=== PATIENT | female | born 1985 | race Caucasian/White ===

== ENCOUNTER 2022-08-30 10:36 | Emergency (ER) | payer OTHER ==
[2022-08-30 10:41] VITALS: TEMP 98.2
[2022-08-30] MEDS ORDERED: methylPREDNISolone SOD SUCCI 125 MG/2 ML VIAL IM ONE (11:02)
--- NOTE | 2022-08-30 11:03 | ED ---
General Adult HPI - General Chief complaint: Skin/Abscess/Foreign Body Stated complaint: rash, stiff neck Time Seen by Provider: 08/30/22 10:55 Source: patient, RN notes reviewed Mode of arrival: ambulatory Limitations: no limitations - History of Present Illness Initial comments: Patient is a 37-year-old female presenting to the emergency room with complaints of a rash that has been ongoing for 4 days and with minimal last 24 hours she developed headache and neck pain. She reports frequent chills and excessive sweating though when she checks her temperature at home she has not been febrile. 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 She reports that the rash is bothersome preventing her from wearing a regular bra. She attempted applying Benadryl topical cream without any improvement in symptoms. She denies any chest pain, shortness breath, abdominal pain, nausea, vomiting, diarrhea, weakness, or dizziness. Overall she is healthy and does not take any medications on a regular basis. - Related Data Previous Rx's Medication Instructions Recorded methylPREDNISolone Dose Pack 4 mg PO DIRECTED #21 tab 08/30/22 [Medrol Dose Pack] Allergies Allergy/AdvReac Type Severity Reaction Status Date / Time No Known Allergies Allergy Verified 08/30/22 10:42 Review of Systems ROS Statement: Those systems with pertinent positive or pertinent negative responses have been documented in the HPI. ROS Other: All systems not noted in ROS Statement are negative. Past Medical History Past Medical History: No Reported History Additional Past Medical History / Comment(s): hydronitis History of Any Multi-Drug Resistant Organisms: None Reported Past Surgical History: Section Past Psychological History: Bipolar Smoking Status: Former smoker Past Alcohol Use History: None Reported Past Drug Use History: None Reported General Exam General appearance: alert, in no apparent distress Head exam: Present: atraumatic, normocephalic Eye exam: Present: normal appearance, PERRL. Absent: scleral icterus, conjunctival injection ENT exam: Present: normal exam, mucous membranes moist Neck exam: Present: normal inspection, full ROM. Absent: lymphadenopathy Respiratory exam: Present: normal lung sounds bilaterally. Absent: respiratory distress, wheezes, rales, rhonchi, stridor Cardiovascular Exam: Present: regular rate, normal rhythm, normal heart sounds. Absent: systolic murmur, diastolic murmur, rubs, gallop, clicks GI/Abdominal exam: Present: soft, normal bowel sounds. Absent: distended, tenderness, guarding, rebound, rigid Extremities exam: Present: normal inspection, full ROM. Absent: pedal edema, joint swelling Back exam: Present: full ROM Neurological exam: Present: alert, oriented X3, CN II-XII intact Psychiatric exam: Present: normal affect, normal mood Skin exam: Present: rash (Abdomen and sacral area macular papular no vesicles noted). Absent: vesicles Course Vital Signs 08/30/22 08/30/22 08/30/22 10:38 13:45 16:07 Temperature 98.2 F Pulse Rate 86 67 69 Respiratory 16 16 14 Rate Blood Pressure 122/86 122/68 101/72 O2 Sat by Pulse 99 97 98 Oximetry Medical Decision Making - Medical Decision Making 37-year-old female presented to the emergency room with ongoing rash to her trunk for 4 days with associated headache neck pain and chills. Will give Solu-Medrol for rash. No airway compromise noted. Will check for COVID. Further diagnostic imaging and laboratory studies pending Covid results and steroid response. Neck pain and chills persist after Solu-Medrol. Covid negative. Will check CBC and BMP. No indication for diagnostic imaging. Will give Tylenol and IV fluid bolus. CBC without abnormalities. BMP shows slightly low sodium and bicarbonate levels otherwise no abnormalities noted. Neck pain improved but persists after IV fluids and Tylenol, will add Reglan and Benadryl to previously given steroids for completion of headache cocktail in-house for improvement of neck pain. Overall symptoms improved after migraine cocktail along with IV fluids and Tylen ol. Will discharge home on steroid dose pack for completion for dermatitis. Encouraged follow-up with primary care provider. Return parameters to the emergency room discussed. Case discussed with Dr. Guzman. - Lab Data Result diagrams: 08/30/22 13:23 08/30/22 13:23 Lab Results 08/30/22 08/30/22 08/30/22 Range/Units 11:12 13:23 13:23 WBC 9.1 (3.8-10.6) k/uL RBC 4.47 (3.80-5.40) m/uL Hgb 14.0 (11.4-16.0) gm/dL Hct 40.1 (34.0-46.0) % MCV 89.9 (80.0-100.0) fL MCH 31.4 (25.0-35.0) pg MCHC 34.9 (31.0-37.0) g/dL RDW 12.2 (11.5-15.5) % Plt Count 189 (150-450) k/uL MPV 8.3 Neutrophils % 89 % Lymphocytes % 7 % Monocytes % 2 % Eosinophils % 1 % Basophils % 0 % Neutrophils # 8.1 H (1.3-7.7) k/uL Lymphocytes # 0.7 L (1.0-4.8) k/uL Monocytes # 0.2 (0-1.0) k/uL Eosinophils # 0.0 (0-0.7) k/uL Basophils # 0.0 (0-0.2) k/uL Sodium 136 L (137-145) mmol/L Potassium 4.1 (3.5-5.1) mmol/L Chloride 103 (98-107) mmol/L Carbon Dioxide 21 L (22-30) mmol/L Anion Gap 12 mmol/L BUN 14 (7-17) mg/dL Creatinine 0.68 (0.52-1.04) mg/dL Est GFR (CKD-EPI)AfAm >90 (>60 ml/min/1.73 sqM) Est GFR (CKD-EPI)NonAf >90 (>60 ml/min/1.73 sqM) Glucose 99 (74-99) mg/dL Calcium 8.9 (8.4-10.2) mg/dL Coronavirus (PCR) Not Detected (Not Detectd) Disposition Clinical Impression: Dermatitis, Neck pain Disposition: HOME SELF-CARE Condition: Stable Instructions (If sedation given, give patient instructions): Moderate Sedation (ED) Additional Instructions: Please complete Medrol Dosepak to help resolve rash. Continue to use topical antihistamine creams as needed to help with itching. Continue Tylenol or ibuprofen for headaches, fevers or neck pain. Please follow-up with your primary care provider. Please return to the Emergency Department if symptoms worsen or any other concerns. Prescriptions: methylPREDNISolone Dose Pack [Medrol Dose Pack] 4 mg PO DIRECTED #21 tab Is patient prescribed a controlled substance at d/c from ED?: No Referrals: None,Stated [Primary Care Provider] - 1-2 days Time of Disposition: 15:48
[2022-08-30] MEDS ORDERED: ACETAMINOPHEN TAB 500 MG TAB PO STA (12:52)
[2022-08-30] MEDS ORDERED: SODIUM CHLORIDE 0.9% 1,000 ML IV STA (12:52)
[2022-08-30 13:34] LABS: Basophils % (A) 0 %; Eosinophils % (A) 1 %; HCT 40.1 % (34.0-46.0); Lymphocytes # (A) 0.7 k/uL (1.0-4.8); Lymphocytes % (A) 7 %; MCH 31.4 pg (25.0-35.0); MCHC 34.9 g/dL (31.0-37.0); MCV 89.9 fL (80.0-100.0); Mean Platelet Volume 8.3; Monocytes # (A) 0.2 k/uL (0-1.0); Monocytes % (A) 2 %; Neutrophils # (A) 8.1 k/uL (1.3-7.7); Neutrophils % (A) 89 %; Platelet Count 189 k/uL (150-450); RBC 4.47 m/uL (3.80-5.40); RDW 12.2 % (11.5-15.5); WBC 9.1 k/uL (3.8-10.6)
[2022-08-30 14:06] LABS: African American GFR (CKD) >90 (>60 ml/min/1.73 sqM); Anion Gap 12 mmol/L; Blood Urea Nitrogen 14 mg/dL (7-17); Calcium 8.9 mg/dL (8.4-10.2); Carbon Dioxide 21 mmol/L (22-30); Chloride 103 mmol/L (98-107); Glucose 99 mg/dL (74-99); Non-African American GFR(CKD) >90 (>60 ml/min/1.73 sqM); Potassium 4.1 mmol/L (3.5-5.1); Sodium 136 mmol/L (137-145)
[2022-08-30] MEDS ORDERED: PROCHLORPERAZINE INJ 10 MG/2 ML VIAL IVP STA (14:10)
[2022-08-30] MEDS ORDERED: diphenhydrAMINE 50 MG/ML 1 ML VIAL IVP STA (14:10)
[2022-08-30 16:09] VITALS: BP 101/72; PULSE 69; RESP 14
== END 2022-08-30 16:10 | disposition home or self-care (01) ==
LOC: EC 10:36
DX: L30.9 Dermatitis, unspecified (principal); M54.2 Cervicalgia; F31.9 Bipolar disorder, unspecified; Z87.891 Personal history of nicotine dependence; Z20.822 Contact with and (suspected) exposure to COVID-19
CPT/HCPCS: 36415; 80048; 85025; 87635; 99284; 96374; 96375; 96361; 96372; J1200; J0780; J2930